=== PATIENT | male | born 1980 | race Caucasian/White ===

== ENCOUNTER 2020-02-11 19:34 | Emergency (ER) | payer OTHER, MEDICARE, SELFPAY ==
--- NOTE | 2020-02-11 19:37 | XR_ITS ---
WS: [id number] XR chest 1V portable [id number] REASON FOR EXAM: Chest pain FINDINGS: The heart and mediastinum are within normal limits. No active pulmonary parenchymal or pleural disease. Bony thorax is intact. XR/XR chest 1V portable [id number] IMPRESSION: No acute chest abnormality.
[2020-02-11 19:38] VITALS: BP 187/124; PULSE 72; RESP 18; TEMP 36.6; O2SAT 97; BMI 38.3
[2020-02-11 21:11] LABS: Basophils % 0.5 %; Eosinophils # 0.2 10^3/uL (0.0-0.8); Eosinophils % 2.1 %; Lymphocytes # 1.8 10^3/uL (0.8-4.8); Mean Corpuscular HGB Conc 34.8 g/dL (30.0-36.0); Mean Corpuscular Hemoglobin 33.1 pg (28.0-34.0); Mean Platelet Volume 9.2 fL (7.4-10.4); Monocytes # 0.5 10^3/uL (0.2-0.9); Monocytes % 6.2 %; Neutrophils # 4.87 10^3/uL (1.8-7.7); Neutrophils % 66.8 %; Nucleated Red Blood Cells % 0 %; Platelet Count 197 10^3/cmm (130-400); Red Blood Count 4.84 10^6/uL (4.1-5.3); Red Cell Distribution Width 13.2 % (12.1-15.1); White Blood Count 7.3 10^3/uL (4.0-10.0)
[2020-02-11 21:21] LABS: INR 1.14 (0.8-1.2)
[2020-02-11 21:37] LABS: Alanine Aminotransferase 51 U/L (0-41); Albumin Level 4.6 g/dL (3.5-5.2); Alkaline Phosphatase 71 IU/L (40-130); Aspartate Amino Transferase 34 U/L (0-40); Blood Urea Nitrogen 11 mg/dL (6-20); Calcium 9.4 mg/dL (8.5-10.5); Carbon Dioxide 28 mmol/L (22-29); Chloride 101 mmol/L (98-107); Globulin 2.4 g/dL (1.3-4.6); Glomerular Filtration Rate 108.2 mL/min (90-130); Glucose 101 mg/dL (65-115); Lipase 29 U/L (13-60); Magnesium 1.9 mg/dL (1.7-2.3); Osmolality Calculated 292 mOsm/kg (285-295); Sodium 141 mmol/L (136-145); Total Bilirubin 0.6 mg/dL (0.15-1.2)
[2020-02-11 21:38] LABS: Troponin(5th) Baseline 6 ng/L (0-15)
[2020-02-11 21:39] VITALS: BP 168/104; PULSE 64; RESP 19; O2SAT 97
[2020-02-11] MEDS: nitroglycerin 0.4 mg sublingual Tablet SUBLINGUAL (21:47)
[2020-02-11] MEDS: aspirin 81 mg Chew Tablet 324 MG PO (21:47)
[2020-02-11 22:17] LABS: Troponin 5 2HR Delta 0 ABS# (0-10)
[2020-02-11 22:53] VITALS: BP 161/104; PULSE 61; RESP 21; O2SAT 95
--- NOTE | 2020-02-11 23:02 | ED_ITS ---
HPI - Chest Pain General: Chief Complaint: Chest Pain Stated Complaint: CP Time Seen by Provider: 02/11/20 20:39 Source: patient Mode of arrival: ambulatory Limitations: no limitations History of Present Illness: MD complaint: chest pain Onset (ago): hour(s) (6) Timing of current episode: constant Prior episodes: No Onset: during rest Pain location: left chest Pain radiation: right arm Severity: moderate Quality: sharp Relieving factors: nothing Exacerbating factors: nothing Context: recent illness Associated symptoms: Deny abdominal pain, dyspnea, fever(s), nausea, palpitations or vomiting Review of Systems General: Reports: 10 or more systems reviewed and unremarkable except in HPI and below Const: Denies: fever(s), chills or body aches Eyes: Denies: change in vision or blurry vision ENMT: Denies: throat pain, enlarged tonsils, odynophagia, hoarseness, mouth pain or swelling of lips/tongue Card: Reports: chest pain; Denies: palpitations, irregular heart rhythm, edema or swelling of feet/ankles Resp: Denies: dyspnea, productive cough or non-productive cough GI: Denies: abdominal pain, nausea or vomiting : Denies: flank pain, dysuria, urinary frequency, urinary urgency or urinary hesitancy Musc: Denies: neck pain, back pain or extremity swelling Skin/Breast: Denies: rash, pruritus or erythema Neuro: Denies: headache(s), numbness in extremities or weakness in extremities Endo: Denies: polyuria, polydipsia or tired all the time Physical Exam Const: COMMON NORMALS: no acute distress, average body habitus, patient oriented x3, no limitations, healthy appearing, alert and well nourished HENMT: COMMON NORMALS: normocephalic, atraumatic and moist oral mucous membranes HEAD & SCALP: normocephalic and atraumatic Neck/C-Spine: COMMON NORMALS: no meningeal signs and no JVD Chest: COMMONS NORMALS: normal inspection of the chest and normal palpation of entire chest wall Resp: COMMON NORMALS: normal respiratory effort, No retractions, No use of accessory muscles, clear to auscultation bilaterally and percussion normal AUSCULTATION: clear to auscultation bilaterally PERCUSSION: percussion normal Cardio: COMMON NORMALS: no JVD, regular rate, regular rhythm, S1 normal heart sound present, S2 normal heart sound present, No gallops present (Cardio), No clicks present (Cardio), No murmurs present (Cardio), No rub (Cardio) and Peripheral pulses 2+ throughout RATE: regular rate RHYTHM: regular rhythm HEART SOUNDS: S1 normal heart sound present and S2 normal heart sound present PERIPHERAL PULSES: Peripheral pulses 2+ throughout GI: COMMON NORMALS: Normal to inspection, nondistended, normoactive bowel sounds present, Soft to palpation, non-tender, No hepatosplenomegaly present, no masses and no bruits PALPATION: Yes Soft to palpation and Yes No hepatosplenomegaly present Extremity: COMMON NORMALS: normal to inspection, full ROM, capillary refill normal, no calf tenderness and no pedal edema Neuro: COMMON NORMALS: patient oriented x3 SENSORIUM/ORIENTATION: Yes alert MENINGEAL SIGNS: Yes no meningeal signs Skin: COMMON NORMALS: no rashes or lesions noted, no wounds, turgor normal, no jaundice, no petechiae and no mottling GENERAL SKIN EXAM: no rashes or lesions noted and turgor normal Course Reevaluation(s): Reevaluation #1: Discussed his lab and imaging findings with him. Negative for acute findings. Negative high-sensitivity troponin. We will discharge him home with no new orders. Heart score is 2 for risk factors, he is low risk for a Mace in the next 6 weeks, 1.7% chance. He is discharged home with no new orders. He voiced understanding and is in agreement with the plan. Time: 23:02 Vital Signs: Vital signs: Vital Signs Temperature 97.8 F 02/11/20 19:38 Pulse Rate 66 02/11/20 23:25 Respiratory Rate 21 H 02/11/20 22:53 Blood Pressure 148/95 02/11/20 23:25 Pulse Oximetry 97 02/11/20 23:25 MDM - Chest Pain MDM Narrative: Medical decision making narrative: Patient with chest pain that is unlikely to be cardiac in nature. Baseline troponin is negative. HEART score is 2 for risk factors, he has a 1.7% risk of a MACE in the next 6 weeks. He is discharged home with no new orders. Differential Diagnosis: Cardiac arrest differential diagnosis: Likely acute respiratory failure and acute myocardial infarction Medical Records: Attestation: I reviewed the patient's medical records. Lab Data: Attestation: I reviewed the patient's lab results. Labs: Lab Results 02/11/20 02/11/20 02/11/20 Range/Units 20:49 20:49 20:49 WBC 7.3 (4.0-10.0) 10^3/ uL RBC 4.84 (4.1-5.3) 10^6/u L Hgb 16.0 (11.7-16.6) g/dL Hct 46.0 (42.0-52.0) % MCV 95.0 H (80-94) fL MCH 33.1 (28.0-34.0) pg MCHC 34.8 (30.0-36.0) g/dL RDW 13.2 (12.1-15.1) % Plt Count 197 (130-400) 10^3/c mm MPV 9.2 (7.4-10.4) fL Neut % (Auto) 66.8 % Lymph % (Auto) 24.0 % [place] % (Auto) 6.2 % Eos % (Auto) 2.1 % Baso % (Auto) 0.5 % Neut # (Auto) 4.87 (1.8-7.7) 10^3/u L Lymph # (Auto) 1.8 (0.8-4.8) 10^3/u L [place] # (Auto) 0.5 (0.2-0.9) 10^3/u L Eos # (Auto) 0.2 (0.0-0.8) 10^3/u L Baso # (Auto) 0.0 (0.0-0.1) 10^3/u L Nucleated RBC % (a uto) 0 % Nucleated RBCs # 0.0 /100WBC PT 15.00 H (12.1-14.9) SECO NDS INR 1.14 (0.8-1.2) Sodium 141 (136-145) mmol/L Potassium 4.0 (3.5-5.1) mmol/L Chloride 101 (98-107) mmol/L Carbon Dioxide 28 (22-29) mmol/L Anion Gap 16.0 (5-19) BUN 11 (6-20) mg/dL Creatinine 0.8 (0.7-1.2) mg/dL GFR Calculation 108.2 (90-130) mL/min Glucose 101 (65-115) mg/dL Calculated Osmolal ity 292 (285-295) mOsm/k g Calcium 9.4 (8.5-10.5) mg/dL Magnesium 1.9 (1.7-2.3) mg/dL Total Bilirubin 0.6 (0.15-1.2) mg/dL AST 34 (0-40) U/L ALT 51 H (0-41) U/L Alkaline Phosphata se 71 (40-130) IU/L Troponin T Baselin e (0-15) ng/L Troponin T 120 Min ewiiaapaayp (0-15) ng/L Delta Troponin T (0-10) ABS# Total Protein 7.0 (6.6-8.7) g/dL Albumin 4.6 (3.5-5.2) g/dL Globulin 2.4 (1.3-4.6) g/dL Lipase 29 (13-60) U/L 02/11/20 02/11/20 Range/Units 20:49 21:50 WBC (4.0-10.0) 10^3/ uL RBC (4.1-5.3) 10^6/u L Hgb (11.7-16.6) g/dL Hct (42.0-52.0) % MCV (80-94) fL MCH (28.0-34.0) pg MCHC (30.0-36.0) g/dL RDW (12.1-15.1) % Plt Count (130-400) 10^3/c mm MPV (7.4-10.4) fL Neut % (Auto) % Lymph % (Auto) % [place] % (Auto) % Eos % (Auto) % Baso % (Auto) % Neut # (Auto) (1.8-7.7) 10^3/u L Lymph # (Auto) (0.8-4.8) 10^3/u L [place] # (Auto) (0.2-0.9) 10^3/u L Eos # (Auto) (0.0-0.8) 10^3/u L Baso # (Auto) (0.0-0.1) 10^3/u L Nucleated RBC % (a uto) % Nucleated RBCs # /100WBC PT (12.1-14.9) SECO NDS INR (0.8-1.2) Sodium (136-145) mmol/L Potassium (3.5-5.1) mmol/L Chloride (98-107) mmol/L Carbon Dioxide (22-29) mmol/L Anion Gap (5-19) BUN (6-20) mg/dL Creatinine (0.7-1.2) mg/dL GFR Calculation (90-130) mL/min Glucose (65-115) mg/dL Calculated Osmolal ity (285-295) mOsm/k g Calcium (8.5-10.5) mg/dL Magnesium (1.7-2.3) mg/dL Total Bilirubin (0.15-1.2) mg/dL AST (0-40) U/L ALT (0-41) U/L Alkaline Phosphata se (40-130) IU/L Troponin T Baselin e 6 (0-15) ng/L Troponin T 120 Min ewiiaapaayp 6.00 (0-15) ng/L Delta Troponin T 0 (0-10) ABS# Total Protein (6.6-8.7) g/dL Albumin (3.5-5.2) g/dL Globulin (1.3-4.6) g/dL Lipase (13-60) U/L Imaging Data^: CXR: Attestation: I personally reviewed and interpreted this imaging study as follows: My impression: No acute findings Discharge Plan Discharge Patient Disposition: Home Clinical Impression: Chest pain, non-cardiac Condition: Stable Prescriptions: Continued Lantus U-100 Insulin 100 unit/mL solution See Rx Instructions .ROUTE .COMPLEX RF: 0 propranolol 10 mg tablet 10 mg PO TID PRN (Reason: Anxiety) RF: 0 lisinopril 40 mg tablet 40 mg PO BID@0600,1800 RF: 0 fluticasone propionate 50 mcg/actuation spray,suspension See Rx Instructions .ROUTE .COMPLEX RF: 0 metformin 500 mg tablet extended release 24 hr 500 mg PO BID@0600,1800 RF: 0 lamotrigine 100 mg tablet 100 mg PO BID@0600,1800 RF: 0 loratadine 10 mg tablet 10 mg PO DAILY@0600 RF: 0 diazepam 5 mg tablet 5 mg PO Q12H PRN (Reason: Anxiety) RF: 0 cholecalciferol (vitamin D3) 25 mcg (1,000 unit) tablet See Rx Instructions .ROUTE .COMPLEX RF: 0 Prialt See Rx Instructions .ROUTE .COMPLEX RF: 0 garlic Tablet 1 tab PO DAILY@0600 RF: 0 Fish Oil 1 tab PO DAILY@0600 RF: 0 Discharge Orders: Discharge ED (Routine); Ordered 02/11/20 Ordered By: Brady Kincaid Discharge Diet: Usual diet Discharge Activity: Resume usual activity Patient Instructions: Noncardiac Chest Pain (ED) Activity Restrictions/Additional Instructions: Return for any new or worsening symptoms. Follow-up with your primary care provider within 3 days. Continue home medications as prescribed. Coding Level of Care Code ED Arborist Representative for Jahaira Sher
[2020-02-11 23:25] VITALS: BP 148/95; PULSE 66; O2SAT 97
== END 2020-02-11 23:26 | disposition home or self-care (01) ==
PROVIDERS: Emergency Medicine; Emergency Provider Family Medicine
DX: R07.89 Other chest pain (principal); Z79.4 Long term (current) use of insulin
CPT/HCPCS: 12345; 71045; 80053; 83690; 83735; 84484; 85025; 85610; 99282; 99283

== ENCOUNTER 2022-10-15 12:47 | Observation (INO) | payer OTHER, SELFPAY ==
--- NOTE | 2022-10-15 12:56 | XR_ITS ---
WS: [id number] XR chest 1V portable [id number] REASON FOR EXAM: cp FINDINGS: Chest is unchanged compared to 02/11/2020. Mild to moderate tortuosity of the thoracic aorta. No significant cardiomegaly. Calcified granulomatous disease in both hemithoraces. Mild elevation of the right hemidiaphragm. No acute pulmonary parenchymal or pleural abnormality. Mild to moderate scoliosis of the thoracic spine with moderate degenerative spondylosis. IMPRESSION: Stable chest with no acute abnormality.
--- NOTE | 2022-10-15 12:56 | ECG_ITS ---
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 Measurements Intervals [place] Rate: 66 P: 17 VA: 177 QRS: 1 QRSD: 102 T: -7 QT: 403 QTc: 423 Interpretive Statements SINUS RHYTHM No previous ECG available for comparison Electronically Signed On 10-15-2022 13:39:23 CDT by Jeannie Bautista M.D. [id number]
[2022-10-15 13:04] VITALS: BP 165/99; PULSE 75; RESP 18; TEMP 36.9; O2SAT 95; BMI 38.3
[2022-10-15 13:52] LABS: Basophils # 0.1 10^3/uL (0.0-0.1); Eosinophils # 0.2 10^3/uL (0.0-0.8); Eosinophils % 2.9 %; Hematocrit 46.4 % (42.0-52.0); Lymphocytes # 1.7 10^3/uL (0.8-4.8); Mean Corpuscular HGB Conc 34.5 g/dL (30.0-36.0); Mean Corpuscular Hemoglobin 31.7 pg (28.0-34.0); Mean Corpuscular Volume 91.9 fl (80-94); Monocytes # 0.6 10^3/uL (0.2-0.9); Monocytes % 7.6 %; Neutrophils # 5.26 10^3/uL (1.8-7.7); Neutrophils % 67.1 %; Nucleated Red Blood Cells % 0 %; Platelet Count 151 10^3/cmm (130-400); Red Blood Count 5.05 10^6/uL (4.1-5.3); Red Cell Distribution Width 13.5 % (12.1-15.1); White Blood Count 7.9 10^3/uL (4.0-10.0)
[2022-10-15 14:01] LABS: Glucose Point of Care 114 mg/dL (70-110)
[2022-10-15 14:06] LABS: INR 1.21 (0.8-1.2)
[2022-10-15 14:19] LABS: Troponin(5th) Baseline 8 ng/L (0-15)
[2022-10-15 14:33] LABS: Alanine Aminotransferase 100 U/L (0-41); Albumin Level 4.7 g/dL (3.5-5.2); Alkaline Phosphatase 90 U/L (40-130); Anion Gap 17.5 (5-19); Aspartate Amino Transferase 69 U/L (0-40); Blood Urea Nitrogen 10 mg/dL (6-20); Carbon Dioxide 29 mmol/L (22-29); Chloride 97 mmol/L (98-107); Globulin 2.5 g/dL (1.3-4.6); Glomerular Filtration Rate 107.1 mL/min (90-130); Glucose 130 mg/dL (65-115); NT Pro B Type Natriuretic Pept 43 pg/mL (0-125); Osmolality Calculated 291 mOsm/kg (285-295); Potassium 3.5 mmol/L (3.5-5.1); Sodium 140 mmol/L (136-145); Total Bilirubin 1.3 mg/dL (0.15-1.2); Total Protein 7.2 g/dL (6.6-8.7)
--- NOTE | 2022-10-15 16:01 | ED_ITS ---
HPI - Chest Pain General: Chief Complaint: Chest Pain Stated Complaint: sob, dizzy, chest pain, high bp Time Seen by Provider: 10/15/22 16:01 History of Present Illness: Mr. Kellogg is a 41-year-old gentleman with complex past medical history including hypertension, diabetes, obesity, smoking presenting to the emergency department for evaluation of chest pain. Notes intermittent episodes which is substernal and left chest with radiation to the left axilla. He at times feels lightheaded and diaphoretic with nausea and dyspnea. The nausea was new today which prompted him to come to the emergency department. Moderate intensity symptoms. Intermittent though more frequent over course. No other specific changes in health, exacerbating, or alleviating factors identified. Onset (ago): hour(s) Timing of current episode: increasing Onset: during rest Exacerbating factors: exertion Associated symptoms: Reports diaphoresis, dyspnea and nausea Review of Systems General: Reports: 10 or more systems reviewed and unremarkable except in HPI and below Const: Reports: diaphoresis Resp: Reports: dyspnea GI: Reports: nausea PFSH ED PFSH: Medical History (Updated 10/16/22 @ 17:34 by Beto Daily MD) Alcohol abuse Anxiety Diabetes Hypertension Surgical History (Updated 10/15/22 @ 21:52 by Jessica Shepard MD) H/O shoulder surgery Hx of tonsillectomy Family History (Updated 10/15/22 @ 21:52 by Jessica Shepard MD) Other CAD (coronary artery disease) Social History (Updated 10/15/22 @ 21:52 by Jessica Shepard MD) Smoking and tobacco status: current every day smoker Alcohol intake: current Physical Exam Const: COMMON NORMALS: alert GENERAL APPEARANCE: cooperative and well developed HENMT: COMMON NORMALS: normocephalic and atraumatic HEAD & SCALP: normocephalic and atraumatic Eye: COMMON NORMALS: conjunctivae normal CONJUNCTIVA: Yes conjunctivae normal SCLERA: sclerae normal Neck/C-Spine: COMMON NORMALS: supple GENERAL: Yes trachea midline Resp: COMMON NORMALS: clear to auscultation bilaterally EFFORT & INSPECTION: Yes able to speak in complete sentences AUSCULTATION: clear to auscultation bilaterally Cardio: COMMON NORMALS: regular rate and regular rhythm RATE: regular rate RHYTHM: regular rhythm GI: COMMON NORMALS: Soft to palpation PALPATION: Yes Soft to palpation and No Tenderness to palpation present (GI) Extremity: GENERAL: Yes normal exam except as noted and No edema Neuro: COMMON NORMALS: moves all extremities SENSORIUM/ORIENTATION: Yes alert and No Orientation impaired Psych: COMMON NORMALS: mental status grossly normal and Normal thought process present THOUGHT PROCESS: Normal thought process present Course Vital Signs: Vital signs: Vital Signs Temperature 98.3 F 10/17/22 15:33 Pulse Rate 85 10/17/22 15:33 Respiratory Rate 16 10/17/22 15:33 Blood Pressure 152/102 10/17/22 15:33 Pulse Oximetry 94 10/17/22 15:33 Oxygen Delivery Me thod Room Air 10/17/22 08:00 MDM - Chest Pain Medical Decision Making 41-year-old gentleman with multiple cardiac risk factors presenting for chest pain. Typical nature. Worsening course. Not producible with physical exam palpation. EKG demonstrates sinus rhythm with nonspecific ST segment abnormalities, no STEMI. Labs with no leukocytosis, normal hemoglobin. Metabolic panel without acute derangement to explain symptoms. Mild transaminitis. Negative range 2-hour delta troponin. Negative chest x-ray. Liver ultrasound with likely fatty infiltration and hepatomegaly. No other acute pathology. Treated during ED course with analgesia, anxiolysis, aspirin. The results of ED evaluation were discussed with the patient including plan for admission due to requirement for level of care not available if discharged to prevent significant worsening/deterioration. Patient agreeable with plan. Discussed with hospitalist service who was agreeable to admit patient. Medical Records I reviewed the patient's medical records. Lab Data I reviewed the patient's lab results. 10/16/22 04:54 10/16/22 04:54 Radiology Impressions Gallbladder Ultrasound 10/15/22 16:49 IMPRESSION: 1. Probable fatty infiltration liver. Hepatomegaly. 2. Unremarkable gallbladder. No findings of acute cholecystitis and no duct dilatation. Laboratory Results WBC 7.9 10^3/uL (4.0-10.0) 10/15/22 13:40 RBC 5.05 10^6/uL (4.1-5.3) 10/15/22 13:40 Hgb 16.0 g/dL (11.7-16.6) 10/15/22 13:40 Hct 46.4 % (42.0-52.0) 10/15/22 13:40 MCV 91.9 fl (80-94) 10/15/22 13:40 MCH 31.7 pg (28.0-34.0) 10/15/22 13:40 MCHC 34.5 g/dL (30.0-36.0) 10/15/22 13:40 RDW 13.5 % (12.1-15.1) 10/15/22 13:40 Plt Count 151 10^3/cmm (130-400) 10/15/22 13:40 MPV 9.0 fL (7.4-10.4) 10/15/22 13:40 Neut % (Auto) 67.1 % 10/15/22 13:40 Lymph % (Auto) 21.0 % 10/15/22 13:40 Mathews % (Auto) 7.6 % 10/15/22 13:40 Eos % (Auto) 2.9 % 10/15/22 13:40 Baso % (Auto) 1.0 % 10/15/22 13:40 Neut # (Auto) 5.26 10^3/uL (1.8-7.7) 10/15/22 13:40 Lymph # (Auto) 1.7 10^3/uL (0.8-4.8) 10/15/22 13:40 Mathews # (Auto) 0.6 10^3/uL (0.2-0.9) 10/15/22 13:40 Eos # (Auto) 0.2 10^3/uL (0.0-0.8) 10/15/22 13:40 Baso # (Auto) 0.1 10^3/uL (0.0-0.1) 10/15/22 13:40 Nucleated RBC % (auto) 0 % 10/15/22 13:40 Nucleated RBCs # 0.0 /100WBC 10/15/22 13:40 PT 15.70 SECONDS (12.1-14.9) H 10/15/22 13:40 INR 1.21 (0.8-1.2) H 10/15/22 13:40 D-Dimer 0.44 ug/mIFEU (0-0.59) 10/15/22 13:40 Sodium 140 mmol/L (136-145) 10/15/22 13:40 Potassium 3.5 mmol/L (3.5-5.1) 10/15/22 13:40 Chloride 97 mmol/L (98-107) L 10/15/22 13:40 Carbon Dioxide 29 mmol/L (22-29) 10/15/22 13:40 Anion Gap 17.5 (5-19) 10/15/22 13:40 BUN 10 mg/dL (6-20) 10/15/22 13:40 Creatinine 0.8 mg/dL (0.7-1.2) 10/15/22 13:40 GFR Calculation 107.1 mL/min (90-130) 10/15/22 13:40 Glucose 130 mg/dL (65-115) H 10/15/22 13:40 POC Glucose 114 mg/dL (70-110) H 10/15/22 13:58 Estimat Average Glucose 143 10/15/22 13:40 Hemoglobin A1c 6.6 % (4.0-6.0) H 10/15/22 13:40 Calculated Osmolality 291 mOsm/kg (285-295) 10/15/22 13:40 Calcium 9.0 mg/dL (8.5-10.5) 10/15/22 13:40 Total Bilirubin 1.3 mg/dL (0.15-1.2) H 10/15/22 13:40 AST 69 U/L (0-40) H 10/15/22 13:40 ALT 100 U/L (0-41) H 10/15/22 13:40 Alkaline Phosphatase 90 U/L (40-130) 10/15/22 13:40 Troponin T Baseline 8 ng/L (0-15) 10/15/22 13:40 Troponin T 120 Minute 6.67 ng/L (0-15) 10/15/22 15:40 Delta Troponin T -1.33 ABS# (0-10) L 10/15/22 15:40 Troponin T Hi Sens 6Hr 6.75 ng/L (0-15) 10/15/22 19:47 Troponin T Hi Sens 6Hr Delta -1.25 ng/L (0-12) L 10/15/22 19:47 NT-Pro-B Natriuret Pep 43 pg/mL (0-125) 10/15/22 13:40 Total Protein 7.2 g/dL (6.6-8.7) 10/15/22 13:40 Albumin 4.7 g/dL (3.5-5.2) 10/15/22 13:40 Globulin 2.5 g/dL (1.3-4.6) 10/15/22 13:40 Lipase 34 U/L (13-60) 10/15/22 13:40 Vitamin B12 610 pg/mL (232-1245) 10/15/22 19:47 TSH 1.32 uIU/mL (0.27-4.20) 10/15/22 19:47 Discharge Plan Discharge Patient Disposition: Placed in Observation Admit Provider: Agatha Membreno Clinical Impression: Chest pain Discharge Diet: Cardiac and Diabetic Discharge Activity: Resume usual activity and Increase activity as tolerated Coding Level of Care Code ED Specimen Transporter for Jahaira Sher
--- NOTE | 2022-10-15 16:12 | ECG_ITS ---
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 Measurements Intervals [place] Rate: 61 P: 15 KS: 190 QRS: -5 QRSD: 91 T: -15 QT: 429 QTc: 436 Interpretive Statements SINUS RHYTHM Compared to ECG 10/15/2022 13:03:07 No significant changes Electronically Signed On 10-15-2022 18:58:15 CDT by Jeannie Bautista M.D. [id number]
--- NOTE | 2022-10-15 16:13 | ECG_ITS ---
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 Measurements Intervals [place] Rate: 61 P: 17 HI: 182 QRS: -3 QRSD: 97 T: -8 QT: 410 QTc: 416 Interpretive Statements SINUS RHYTHM Compared to ECG 10/15/2022 13:03:07 No significant changes Electronically Signed On 10-15-2022 18:58:09 CDT by Jeannie Bautista M.D. [id number]
--- NOTE | 2022-10-15 16:24 | PC.PHAR ---
[facility]ED [facility] 10/15/22 4:25PM
[2022-10-15] MEDS: morphine 4 mg/mL SDV 1 mL IVP (16:27)
[2022-10-15] MEDS: aspirin 81 mg Chew Tablet 324 MG PO (16:27)
--- NOTE | 2022-10-15 16:49 | USR_ITS ---
PROCEDURE INFORMATION: Exam: US Abdomen, Limited; Right Upper Quadrant Exam date and time: 10/15/2022 5:41 PM Age: 41 years old Clinical indication: Pain; Other: Chest; Additional info: Chest pain, mild transaminitis and elevated t. Bili TECHNIQUE: Imaging protocol: Real time ultrasound of the abdomen with image documentation. Limited exam focused on the right upper quadrant. COMPARISON: No relevant prior studies available. FINDINGS: Liver: The liver is echogenic with attenuation of the ultrasound beam compatible with probable fatty infiltration. The liver measures 23.2 cm in length. Gallbladder: Normal. No gallstones. There is no gallbladder wall thickening. Gallbladder wall measures 2.4 mm. Biliary ducts: Normal. No stones. No dilation. Common bile duct measures 4.4 mm. Pancreas: Visualized pancreas is unremarkable. Right kidney: Normal. No mass. No hydronephrosis. Right kidney measures 13.7 cm in length. US/US gall bladder [id number] IMPRESSION: 1. Probable fatty infiltration liver. Hepatomegaly. 2. Unremarkable gallbladder. No findings of acute cholecystitis and no duct dilatation.
[2022-10-15 17:06] LABS: Lipase 34 U/L (13-60)
[2022-10-15 17:07] LABS: Troponin 5 2HR 6.67 ng/L (0-15); Troponin 5 2HR Delta -1.33 ABS# (0-10)
[2022-10-15] MEDS: LORazepam 1 mg Tablet PO (18:29)
[2022-10-15 18:39] VITALS: BP 171/99; PULSE 70; RESP 16; O2SAT 98
[2022-10-15 20:53] LABS: Troponin 5 6HR 6.75 ng/L (0-15); Troponin 5 6HR Delta -1.25 ng/L (0-12)
--- NOTE | 2022-10-15 20:59 | P.HP_ITS ---
Providers/Chief Complaint Admitting Physician: Agatha Membreno MD Chief Complaint: sob, dizzy, chest pain, high bp History of Present Illness Balaji Kellogg is a 41 year old male who lives in [facility] area was visiting his mother in the air when he start experiencing chest pain around 8 AM he was walking towards the kitchen from bedroom when he experienced left-sided chest pain which she is describing as pressure-like sensation, patient is stating that this pain has been intermittent all day without any relieving or aggravating factor, however this pain is reproducible he noticed 2 episode of emesis which made him very anxious and gave him a panic attack that prompted his visit to the ER at around 1 PM, patient stating that he became very anxious and anxiolytics in the ER really helped to calm his symptoms. Patient stating that he had a stress test and echo within 5 years which was unremarkable. Patient is stating that he has an known opioid pump for his left shoulder persistent pain, he drinks half a pint of whiskey and vodka on daily basis and smokes on daily basis as well. Never experienced any withdrawal symptoms. Patient was hypertensive his symptoms improved with use of Ativan 1 mg at the time of evaluation blood pressure is 157/96 mmHg EKG showing sinus rhythm without ischemic or infarct changes, troponin trending down D-dimer 0.4 Patient is chest pain-free at the time of evaluation He has reproducible left-sided chest pain Review of Systems Const: Denies: fever(s) Eyes: Denies: change in vision ENMT: Denies: throat pain Card: Reports: chest pain Resp: Denies: dyspnea GI: Reports: nausea : Denies: urinary frequency Musc: Denies: neck pain Skin/Breast: Denies: rash Neuro: Denies: headache(s) Psych: Reports: anxiety and sleeping less Medications/Allergies Home Medications Medication Instructions Recorded Confirmed Last Taken Type Fish Oil 1 tab PO DAILY@0600 02/11/20 02/11/20 Unknown History Prialt See Rx Instructions .Route .COMPLEX 02/11/20 02/11/20 02/11/20 History cholecalciferol (vitamin D3) 25 See Rx Instructions .Route .COMPLEX 02/11/20 02/11/20 02/11/20 History mcg (1,000 unit) tablet diazepam 5 mg tablet 5 mg PO Q12H PRN Anxiety 02/11/20 02/11/20 02/11/20 History fluticasone propionate 50 See Rx Instructions .Route .COMPLEX 02/11/20 02/11/20 02/10/20 History mcg/actuation nasal spray,suspension garlic 1 tab PO DAILY@0600 02/11/20 02/11/20 Unknown History insulin glargine 100 unit/mL See Rx Instructions .Route .COMPLEX 02/11/20 02/11/20 02/11/20 History subcutaneous solution (Lantus U-100 Insulin) lamotrigine 100 mg tablet 100 mg PO BID@0600,1800 02/11/20 02/11/20 02/11/20 History lisinopril 40 mg tablet 40 mg PO BID@0600,1800 02/11/20 02/11/20 02/11/20 History loratadine 10 mg tablet 10 mg PO DAILY@0600 02/11/20 02/11/20 02/10/20 History metformin 500 mg tablet,extended 500 mg PO BID@0600,1800 02/11/20 02/11/20 02/11/20 History release 24 hr propranolol 10 mg tablet 10 mg PO TID PRN Anxiety 02/11/20 02/11/20 02/11/20 History Allergies Allergy/AdvReac Type Severity Reaction Status Date / Time divalproex sodium Allergy Unknown [facility]20 [facility] Penicillins Allergy Unknown Verified 02/11/20 21:23 PFSH Acute PFSH: Medical History (Updated 10/15/22 @ 21:52 by Jessica Shepard MD) Diabetes Hypertension Surgical History (Updated 10/15/22 @ 21:52 by Jessica Shepard MD) H/O shoulder surgery Hx of tonsillectomy Family History (Updated 10/15/22 @ 21:52 by Jessica Shepard MD) Other CAD (coronary artery disease) Social History (Updated 10/15/22 @ 21:52 by Jessica Shepard MD) Smoking and tobacco status: current every day smoker Alcohol intake: current Vitals/I&O/Wt Last Vital Signs Temp 98.4 F 10/15/22 13:04 Pulse 70 10/15/22 18:39 Resp 16 10/15/22 18:39 BP 171/99 10/15/22 18:39 Pulse Ox 98 10/15/22 18:39 O2 Del Method Room Air 10/15/22 18:39 Weight last 48 hrs Weight 142.882 kg Physical Exam Narrative: Patient is awake and alert GCS 15 Reproduce left-sided chest pain Multiple skin tattoos Well-built Morbidly obese Appears stated age Currently on room air Nonfocal neuro exam Pleasant and cooperative Data 10/15/22 13:40 10/15/22 13:40 A&P Assessment and plan (1) Chest pain: Plan Atypical chest pain Reproducible left-sided pain Troponin negative EKG without ischemic or infarct changes He has multiple risk factors for coronary disease such as hypertension diabetes, dyslipidemia, high BMI, he drinks on daily basis Alcohol-related gastritis could also cause similar complaints Add Protonix IV at this point Continue thiamine folic acid Request echo to see wall motion abnormality I did tell the patient if echo is unremarkable he may be able to go home tomorrow provided the fact he had stress test and echo done within 5 years at [facility] I will continue cardiac consistent carb diet Give him Lantus Patient is asking for medications for insomnia Full code DVT prophylaxis on board D-dimer requested Hypertensive urgency: Adjust antihypertensive regimen, blood pressure not well controlled on current regimen PTSD: Patient takes propranolol and lamotrigine Attestations Medical Necessity Statement*: Anticipating discharge within 48 hours Diagnoses Chest pain R07.9
[2022-10-15 21:23] VITALS: BP 157/96; PULSE 73; RESP 20; TEMP 37; O2SAT 96
[2022-10-15 21:31] LABS: Glucose Point of Care 176 mg/dL (70-110)
[2022-10-15 21:33] LABS: D Dimer 0.44 ug/mIFEU (0-0.59)
[2022-10-15 21:51] LABS: Thyroid Stimulating Hormone 1.32 uIU/mL (0.27-4.20); Vitamin B12 610 pg/mL (232-1245)
[2022-10-15 22:00] VITALS: PULSE 54
[2022-10-15] MEDS: lamoTRIgine 100 mg Tablet PO (22:31)
[2022-10-15] MEDS: enoxaparin 40 mg/0.4 mL Syringe SUBCUT (22:31)
[2022-10-15 22:33] VITALS: RESP 20; O2SAT 96
[2022-10-15] MEDS: morphine IR 15 mg Tablet PO (22:33)
[2022-10-15 23:46] VITALS: BP 163/103; PULSE 66; RESP 17; TEMP 37; O2SAT 95
[2022-10-16] VITALS (14 sets, daily range): BP systolic 124–164; BP diastolic 75–108; PULSE 62–84; RESP 15–18; TEMP 36.6–36.9; O2SAT 93–98
[2022-10-16] MEDS: LORazepam 2 mg/mL INJ 1 mL 0.5 MG IVP ×2 (00:05→06:15)
[2022-10-16 01:13] LABS: Estmated Average Glucose 143; Hemoglobin A1C 6.6 % (4.0-6.0)
[2022-10-16 01:28] LABS: Amphetamines Screen Urine Negative (Negative); Barbiturates Screen Urine Negative (Negative); Benzodiazepines Screen Urine Positive (Negative); Cocaine Screen Urine Negative (Negative); Opiate Screen Urine Positive (Negative); PCP Screen Urine Negative (Negative); THC Screen Urine Positive (Negative)
--- NOTE | 2022-10-16 02:31 | PC.NURSE ---
PATIENT C/O CHEST PAIN 7/10 ON PAIN SCALE. PATIENT PO MORPHINE NOT DUE UNTIL 0430. CALLED [facility] HOSPITALIST DR LEE. RECEIVED TELEPHONE READ BACK ORDER TO ADMIN PO MORPHINE NOW. WILL CONTINUE TO MONITOR.
[2022-10-16] MEDS: morphine IR 15 mg Tablet PO ×3 (02:49→21:05)
[2022-10-16 05:57] LABS: Basophils % 0.4 %; Eosinophils # 0.2 10^3/uL (0.0-0.8); Eosinophils % 2.3 %; Hematocrit 42.4 % (42.0-52.0); Lymphocytes % 28.8 %; Mean Corpuscular HGB Conc 35.4 g/dL (30.0-36.0); Mean Corpuscular Hemoglobin 32.5 pg (28.0-34.0); Mean Corpuscular Volume 91.8 fl (80-94); Mean Platelet Volume 9.3 fL (7.4-10.4); Monocytes # 0.6 10^3/uL (0.2-0.9); Monocytes % 7.8 %; Neutrophils # 4.27 10^3/uL (1.8-7.7); Neutrophils % 60.3 %; Nucleated Red Blood Cells % 0 %; Platelet Count 145 10^3/cmm (130-400); Red Blood Count 4.62 10^6/uL (4.1-5.3); Red Cell Distribution Width 13.5 % (12.1-15.1); White Blood Count 7.1 10^3/uL (4.0-10.0)
[2022-10-16] MEDS: lamoTRIgine 100 mg Tablet PO ×2 (06:05→17:35)
[2022-10-16 06:20] LABS: Anion Gap 13.3 (5-19); Blood Urea Nitrogen 12 mg/dL (6-20); Calcium 9.1 mg/dL (8.5-10.5); Carbon Dioxide 28 mmol/L (22-29); Chloride 100 mmol/L (98-107); Glomerular Filtration Rate 124.9 mL/min (90-130); Glucose 108 mg/dL (65-115); Magnesium 1.8 mg/dL (1.7-2.3); Osmolality Calculated 286 mOsm/kg (285-295); Potassium 3.3 mmol/L (3.5-5.1); Sodium 138 mmol/L (136-145)
[2022-10-16 06:55] LABS: Glucose Point of Care 112 mg/dL (70-110)
[2022-10-16] MEDS: chlorthalidone 25 mg Tablet 12.5 MG PO (08:36)
[2022-10-16] MEDS: folic acid 1 mg Tablet PO (08:36)
[2022-10-16] MEDS: sennosides-docusate Tablet 1 TAB PO (08:36)
[2022-10-16] MEDS: lisinopril 20 mg Tablet 40 MG PO (08:36)
[2022-10-16] MEDS: thiamine 100 mg Tablet PO (08:36)
[2022-10-16] MEDS: aspirin 81 mg EC Tablet PO (08:36)
[2022-10-16] MEDS: amlodipine 10 mg Tablet PO (08:36)
[2022-10-16] MEDS: propranolol 20 mg Tablet 10 MG PO (09:36)
--- NOTE | 2022-10-16 09:49 | ECG_ITS ---
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 Measurements Intervals [place] Rate: 67 P: 20 PA: 211 QRS: -16 QRSD: 110 T: -24 QT: 409 QTc: 435 Interpretive Statements SINUS RHYTHM WITH FIRST DEGREE AV BLOCK MODERATE VOLTAGE CRITERIA FOR LVH, CONSIDER NORMAL VARIANT [MEETS CRITERIA IN ONE OF: R(aVL), S(V1), R(V5), R(V5/V6)+S(V1)] INFERIOR MYOCARDIAL INFARCTION , OF INDETERMINATE AGE [40+ ms Q WAVE AND/OR ST/T ABNORMALITY IN II/aVF] INTERPRETATION BASED ON A DEFAULT AGE OF 40 YEARS Compared to ECG 10/15/2022 16:13:27 First degree AV block now present Myocardial infarct finding now present Electronically Signed On 10-17-2022 11:34:10 CDT by Antonio Wallis M.D. [id number]
[2022-10-16 10:45] LABS: Alcohol Level < 10 mg/dL (0-10)
[2022-10-16] MEDS: ALPRAZolam 0.5 mg Tablet PO (10:46)
[2022-10-16 11:33] LABS: Glucose Point of Care 145 mg/dL (70-110)
[2022-10-16] MEDS: insulin lispro 100 unit/1 mL SUBCUT ×2 (11:50→21:03)
[2022-10-16] MEDS: LORazepam 2 mg/mL INJ 1 mL IVP (12:05)
[2022-10-16 17:23] LABS: Glucose Point of Care 135 mg/dL (70-110)
--- NOTE | 2022-10-16 17:33 | PM.PN ---
Subjective Subjective: Currently labs appreciated. Monitor overnight. Today morning patient had 1 episode of anxiety spell when he felt as if his heart was racing and he was having mild chest pain though got relieved with oral Xanax and IV Ativan for a CIWA of more than 13. On examination he is a lot more relaxed, denies any chest pain. Mother at bedside. Asking for resources regarding alcohol withdrawal programs. Patient would like to get admitted somewhere closer to his home and would want to do it by himself. Denies any nausea, pain, headache. Blood work appreciated. Vitals/I&O/Wt Last Vital Signs Temp 98.0 F 10/16/22 16:00 Pulse 68 10/16/22 16:00 Resp 17 10/16/22 16:00 BP 142/94 10/16/22 16:00 Pulse Ox 94 10/16/22 16:00 O2 Del Method Room Air 10/16/22 08:00 10/16/22 10/16/22 10/16/22 06:59 14:59 22:59 Intake Total 860 / 860 Output Total 300 / 300 Balance -300 / -300 860 / 860 Weight last 48 hrs Weight 142.882 kg Physical Exam Narrative: Patient is awake and alert GCS 15 Reproduce left-sided chest pain Multiple skin tattoos Well-built Morbidly obese Appears stated age Currently on room air Nonfocal neuro exam Pleasant and cooperative Data 10/16/22 04:54 10/16/22 04:54 A&P Assessment and plan (1) Anxiety: (2) Alcohol abuse: (3) Hypertension: (4) Diabetes: (5) Chest pain: Plan Atypical chest pain: Most likely in setting of anxiety and alcohol abuse. Cannot rule out alcohol induced gastritis. Troponin negative He has multiple risk factors for coronary disease such as hypertension diabetes, dyslipidemia, high BMI, he drinks on daily basis Has had recent stress test and echocardiogram in last 5 years at [facility] which as per him were reported normal. Continue with aspirin, statin. Echocardiogram awaited. If positive will plan for Lexiscan stress test otherwise we will plan to discharge home. A1c 6.6, TSH normal, B12 levels normal. Add lipid panel to the labs. Goal blood pressure less than 140/90 mmHg. Continue with amlodipine 10 mg daily started overnight, home dose of lisinopril 40 mg daily. Continue propanol 3 times daily as needed for anxiety. Alcohol abuse: Watch for alcohol withdrawal. CIWA protocol. Thiamine and folic acid. Type 2 diabetes mellitus: Appreciate A1c. Insulin sliding scale ordered Carb consistent cardiac diet. Lovenox for DVT prophylaxis Protonix for PUD prophylaxis. Case management requested to provide patient's documents regarding alcohol withdrawal program closer to his home. Patient would want to get admitted to a rehab by himself nearer to his house. Attestations Medical Necessity Statement*: Requires further hospitalization for further evaluation and management of atypical chest pain most likely in setting of anxiety and alcohol withdrawal Diagnoses Anxiety F41.9 Alcohol abuse F10.10 Hypertension I10 Diabetes E11.9 Chest pain R07.9
[2022-10-16 17:59] LABS: Chol HDL Ratio 4.37 mg/dL (1.0-5.00); Cholesterol 131 mg/dL (0-200); HDL Cholesterol 30 mg/dL (60-100); LDL Cholesterol Calculated 62 mg/dL (50-129); Triglycerides 197 mg/dL (0-150); VLDL Cholestrol Calculation 39 mg/dL (0-30)
[2022-10-16 20:33] LABS: Glucose Point of Care 145 mg/dL (70-110)
--- NOTE | 2022-10-16 21:00 | USCV_ITS ---
Balaji Kellogg Age: 41 Gender: M : 1980 Exam Date: 10/16/2022 16:33 Ordering Phys: Jessica Shepard MD Technologist: AYANNA Exam Location: [facility] [place] Indication: ua BP: / HR: 67 Rhythm: Sinus Technical Quality: Poor MEASUREMENTS (Male / Female) Normal Values 2D ECHO LV Diastolic Diameter PLAX 6.9 cm 4.2 - 5.9 / 3.9 - 5.3 cm LV Systolic Diameter PLAX 5.4 cm IVS Diastolic Thickness 1.0 cm 0.6 - 1.0 / 0.6 - 0.9 cm IVS Systolic Thickness 1.8 cm LVPW Diastolic Thickness 1.2 cm 0.6 - 1.0 / 0.6 - 0.9 cm LVPW Systolic Thickness 1.2 cm LVOT Diameter 2.8 cm LV Ejection Fraction 2D Teich 43.2 % LV Ejection Fraction MOD 2C 30.1 % LV Ejection Fraction 2C AL 26.8 % LA Diameter 3.7 cm M-MODE Aortic Annulus Diameter 3.6 cm LA Ao Ratio MM 1.1 MV E Point Septal Separation 1.2 cm DOPPLER MV Area PHT 4.3 cm squared Mitral E to A Ratio 1.2 MV E' Velocity 51.5 cm/s Mitral E to MV E' Ratio 10.2 Mitral E to LV E' Lateral Ratio 8.5 Mitral E to LV E' Septal Ratio 12.9 TR Peak Velocity 151.0 cm/s TR Peak Gradient 9.1 mmHg TV Peak E Velocity 81.0 cm/s PV Peak Velocity 104.0 cm/s FINDINGS Left Ventricle Ventricle is poorly seen. There appears to be normal size and function with no regional wall motion abnormalities. Normal diastolic function. Ejection fraction is about 55 to 60%. Right Ventricle Right ventricle not well visualized. Normal right ventricular size and systolic function. Right Atrium The right atrium is normal in size. Left Atrium The left atrium is normal in size. Mitral Valve Structurally normal mitral valve without significant stenosis or prolapse. There is no mitral regurgitation. Aortic Valve Structurally normal aortic valve without significant sclerosis or stenosis. There is no aortic regurgitation. Tricuspid Valve Structurally normal tricuspid valve without significant stenosis or regurgitation. Pulmonary artery systolic pressure is normal. Pulmonic Valve Structurally normal pulmonic valve without significant stenosis. There is no pulmonic regurgitation. Pericardium Normal pericardium without effusion. Aorta Normal ascending aorta dimension. IVC Inferior vena cava not visualized. CONCLUSIONS Ventricle is poorly seen. There appears to be normal size and function with no regional wall motion abnormalities. Normal diastolic function. Ejection fraction is about 55 to 60%. This is a poor quality study with no obvious abnormalities. The echo is likely within normal limits.there are no prior echocardiogram studies to compare. Dr. Antonio Wallis MD (Electronically Signed) Final Date: 17 October 2022 09:28 S
[2022-10-16] MEDS: insulin glargine 100 units/1 mL 22 UNIT SUBCUT (21:02)
[2022-10-16] MEDS: enoxaparin 40 mg/0.4 mL Syringe SUBCUT (21:02)
[2022-10-16] MEDS: zolpidem 5 mg Tablet PO (23:15)
[2022-10-17] VITALS (8 sets, daily range): BP systolic 134–152; BP diastolic 88–102; PULSE 65–85; RESP 14–18; TEMP 36.3–36.8; O2SAT 93–97
[2022-10-17] MEDS: ondansetron 2 mg/ML SDV 2 mL 4 MG IVP (04:11)
[2022-10-17] MEDS: LORazepam 2 mg/mL INJ 1 mL IVP ×2 (04:11→09:18)
[2022-10-17] MEDS: lamoTRIgine 100 mg Tablet PO (05:51)
[2022-10-17 06:41] LABS: Glucose Point of Care 116 mg/dL (70-110)
[2022-10-17] MEDS: multivitamin therapeutic Tablet 1 TAB PO (09:01)
[2022-10-17] MEDS: lisinopril 20 mg Tablet 40 MG PO (09:01)
[2022-10-17] MEDS: folic acid 1 mg Tablet PO (09:02)
[2022-10-17] MEDS: morphine IR 15 mg Tablet PO ×2 (09:02→15:27)
[2022-10-17] MEDS: amlodipine 10 mg Tablet PO (09:02)
[2022-10-17] MEDS: sennosides-docusate Tablet 1 TAB PO (09:03)
[2022-10-17] MEDS: aspirin 81 mg EC Tablet PO (09:03)
[2022-10-17] MEDS: thiamine 100 mg Tablet PO (09:03)
[2022-10-17 11:00] LABS: Glucose Point of Care 116 mg/dL (70-110)
--- NOTE | 2022-10-17 12:33 | P.DS_ITS ---
Discharge Providers Date of Admission: 10/15/22 21:10 Date of Discharge: October 17, 2022 Attending Provider at Admission: Agatha Membreno MD Attending Provider at Discharge: Beto Daily MD Diagnoses at Discharge Discharge Diagnosis (1) Anxiety: Status: Acute (2) Alcohol abuse: Status: Acute (3) Hypertension: Status: Acute (4) Diabetes: Status: Acute (5) Chest pain: Status: Acute Reason for Visit Reason for Visit: sob, dizzy, chest pain, high bp Brief History: History as per HPI: Balaji Kellogg is a 41 year old male who lives in [facility] area was visiting his mother in the air when he start experiencing chest pain around 8 AM he was walking towards the kitchen from bedroom when he experienced left-sided chest pain which she is describing as pressure-like sensation, patient is stating that this pain has been intermittent all day without any relieving or aggravating factor, however this pain is reproducible he noticed 2 episode of emesis which made him very anxious and gave him a panic attack that prompted his visit to the ER at around 1 PM, patient stating that he became very anxious and anxiolytics in the ER really helped to calm his symptoms.? Patient stating that he had a stress test and echo within 5 years which was unremarkable.? Patient is stating that he has an known opioid pump for his left shoulder persistent pain, he drinks half a pint of whiskey and vodka on daily basis and smokes on daily basis as well.? Never experienced any withdrawal symptoms.? Patient was hypertensive his symptoms improved with use of Ativan 1 mg at the time of evaluation blood pressure is 157/96 mmHg EKG showing sinus rhythm without ischemic or infarct changes, troponin trending down D-dimer 0.4 Patient is chest pain-free at the time of evaluation He has reproducible left-sided chest pain Hospital Course Hospital Course Patient was admitted to the hospital for further evaluation and management of atypical chest pain in setting of high risk factors for CAD, anxiety and history of alcohol abuse. During hospitalization patient did have few episodes of anxiety and panic in setting of alcohol withdrawal which were treated with benzodiazepines. Echocardiogram was done which ruled out regional wall motion abnormality and showed normal EF. Given normal stress test within last 5 years without regional wall motion abnormality on echocardiogram and negative trend of delta troponin decision was made to discharge patient back home. During hos pitalization he was found to have elevated blood pressures/antihypertensives have been adjusted. Patient was counseled in detail for alcohol consumption cessation. She verbalized understanding and wants to go ahead and voluntarily to alcohol withdrawal place near his home. Resources have been provided to the patient was seen. Physical Exam Narrative: Patient is awake and alert GCS 15 Reproduce left-sided chest pain Multiple skin tattoos Well-built Morbidly obese Appears stated age Currently on room air Nonfocal neuro exam Pleasant and cooperative Discharge Data Studies Completed and Pending Completed Studies During Hospitalization Category Date Time Status XR chest 1V portable [id number] Stat Exams 10/15/22 12:56 Completed CV. echo complete* [id number] Routine Ultrasound 10/16/22 21:00 Completed US gall bladder [id number] Stat Ultrasound 10/15/22 16:49 Completed Radiology Impressions Gallbladder Ultrasound 10/15/22 16:49 IMPRESSION: 1. Probable fatty infiltration liver. Hepatomegaly. 2. Unremarkable gallbladder. No findings of acute cholecystitis and no duct dilatation. Echocardiogram: ?CONCLUSIONS ?Ventricle is poorly seen.? There appears to be normal size and ?function with no regional wall motion abnormalities.? Normal ?diastolic function.? Ejection fraction is about 55 to 60%. ?This is a poor quality study with no obvious abnormalities.? The ?echo is likely within normal limits.there are no prior ?echocardiogram studies to compare. Laboratory Results WBC 7.1 10^3/uL (4.0-10.0) 10/16/22 04:54 RBC 4.62 10^6/uL (4.1-5.3) 10/16/22 04:54 Hgb 15.0 g/dL (11.7-16.6) 10/16/22 04:54 Hct 42.4 % (42.0-52.0) 10/16/22 04:54 MCV 91.8 fl (80-94) 10/16/22 04:54 MCH 32.5 pg (28.0-34.0) 10/16/22 04:54 MCHC 35.4 g/dL (30.0-36.0) 10/16/22 04:54 RDW 13.5 % (12.1-15.1) 10/16/22 04:54 Plt Count 145 10^3/cmm (130-400) 10/16/22 04:54 MPV 9.3 fL (7.4-10.4) 10/16/22 04:54 Neut % (Auto) 60.3 % 10/16/22 04:54 Lymph % (Auto) 28.8 % 10/16/22 04:54 [place] % (Auto) 7.8 % 10/16/22 04:54 Eos % (Auto) 2.3 % 10/16/22 04:54 Baso % (Auto) 0.4 % 10/16/22 04:54 Neut # (Auto) 4.27 10^3/uL (1.8-7.7) 10/16/22 04:54 Lymph # (Auto) 2.0 10^3/uL (0.8-4.8) 10/16/22 04:54 [place] # (Auto) 0.6 10^3/uL (0.2-0.9) 10/16/22 04:54 Eos # (Auto) 0.2 10^3/uL (0.0-0.8) 10/16/22 04:54 Baso # (Auto) 0.0 10^3/uL (0.0-0.1) 10/16/22 04:54 Nucleated RBC % (auto) 0 % 10/16/22 04:54 Nucleated RBCs # 0.0 /100WBC 10/16/22 04:54 PT 15.70 SECONDS (12.1-14.9) H 10/15/22 13:40 INR 1.21 (0.8-1.2) H 10/15/22 13:40 D-Dimer 0.44 ug/mIFEU (0-0.59) 10/15/22 13:40 Sodium 138 mmol/L (136-145) 10/16/22 04:54 Potassium 3.3 mmol/L (3.5-5.1) L 10/16/22 04:54 Chloride 100 mmol/L (98-107) 10/16/22 04:54 Carbon Dioxide 28 mmol/L (22-29) 10/16/22 04:54 Anion Gap 13.3 (5-19) 10/16/22 04:54 BUN 12 mg/dL (6-20) 10/16/22 04:54 Creatinine 0.7 mg/dL (0.7-1.2) 10/16/22 04:54 GFR Calculation 124.9 mL/min (90-130) 10/16/22 04:54 Glucose 108 mg/dL (65-115) 10/16/22 04:54 POC Glucose 116 mg/dL (70-110) H 10/17/22 10:53 Estimat Average Glucose 143 10/15/22 13:40 Hemoglobin A1c 6.6 % (4.0-6.0) H 10/15/22 13:40 Calculated Osmolality 286 mOsm/kg (285-295) 10/16/22 04:54 Calcium 9.1 mg/dL (8.5-10.5) 10/16/22 04:54 Magnesium 1.8 mg/dL (1.7-2.3) 10/16/22 04:54 Total Bilirubin 1.3 mg/dL (0.15-1.2) H 10/15/22 13:40 AST 69 U/L (0-40) H 10/15/22 13:40 ALT 100 U/L (0-41) H 10/15/22 13:40 Alkaline Phosphatase 90 U/L (40-130) 10/15/22 13:40 Troponin T Baseline 8 ng/L (0-15) 10/15/22 13:40 Troponin T 120 Minute 6.67 ng/L (0-15) 10/15/22 15:40 Delta Troponin T -1.33 ABS# (0-10) L 10/15/22 15:40 Troponin T Hi Sens 6Hr 6.75 ng/L (0-15) 10/15/22 19:47 Troponin T Hi Sens 6Hr Delta -1.25 ng/L (0-12) L 10/15/22 19:47 C-Reactive Protein 11.0 mg/L (0.0-4.9) H 10/16/22 04:54 NT-Pro-B Natriuret Pep 43 pg/mL (0-125) 10/15/22 13:40 Total Protein 7.2 g/dL (6.6-8.7) 10/15/22 13:40 Albumin 4.7 g/dL (3.5-5.2) 10/15/22 13:40 Globulin 2.5 g/dL (1.3-4.6) 10/15/22 13:40 Triglycerides 197 mg/dL (0-150) H 10/16/22 04:54 Cholesterol 131 mg/dL (0-200) 10/16/22 04:54 LDL Cholesterol, Calc 62 mg/dL (50-129) 10/16/22 04:54 Total VLDL Cholesterol 39 mg/dL (0-30) H 10/16/22 04:54 HDL Cholesterol 30 mg/dL (60-100) L 10/16/22 04:54 Cholesterol/HDL Ratio 4.37 mg/dL (1.0-5.00) 10/16/22 04:54 Lipase 34 U/L (13-60) 10/15/22 13:40 Vitamin B12 610 pg/mL (232-1245) 10/15/22 19:47 TSH 1.32 uIU/mL (0.27-4.20) 10/15/22 19:47 Urine Opiates Screen Positive ng/mL (Negative) H 10/15/22 23:35 Ur Barbiturates Screen Negative ng/mL (Negative) 10/15/22 23:35 Ur Phencyclidine Scrn Negative ng/mL (Negative) 10/15/22 23:35 Ur Amphetamines Screen Negative ng/mL (Negative) 10/15/22 23:35 U Benzodiazepines Scrn Positive ng/mL (Negative) H 10/15/22 23:35 Urine Cocaine Screen Negative ng/mL (Negative) 10/15/22 23:35 U Marijuana (THC) Screen Positive ng/mL (Negative) H 10/15/22 23:35 Ethyl Alcohol < 10 mg/dL (0-10) 10/16/22 04:54 Vitals Last Vital Signs Temp 98.3 F 10/17/22 08:00 Pulse 74 10/17/22 08:00 Resp 16 10/17/22 09:02 BP 148/94 10/17/22 08:00 Pulse Ox 93 10/17/22 08:00 O2 Del Method Room Air 10/17/22 08:00 Discharge Plan Discharge Patient Disposition: Home Condition: Stable Prescriptions: New aspirin 81 mg Tablet,Delayed Release (Dr/Ec) 81 mg PO DAILY Qty: 30 0RF Continued insulin glargine [Lantus U-100 Insulin] 100 unit/mL solution 22 unit SUBCUT 1XD Rx Instructions: subcutaneously use as directed propranolol 10 mg tablet 10 mg PO TID PRN (Reason: Anxiety) lisinopril 40 mg tablet 40 mg PO 1XD lamotrigine 100 mg tablet 100 mg PO BID@0600,1800 Prialt See Rx Instructions .ROUTE .COMPLEX Rx Instructions: use as directed metformin 750 mg 1 tab PO BID atorvastatin 10 mg Tablet 5 mg PO DAILY Trintellix 20 mg PO 1XD alprazolam 1 mg PO PRN MDD TID Changed amlodipine benzoate 10 mg PO 1XD Qty: 30 0RF Discharge Orders: Discharge Order (Routine); Ordered 10/17/22 Ordered By: Beto Daily Discharge Diet: Cardiac and Diabetic Discharge Activity: Resume usual activity and Increase activity as tolerated Patient Instructions: Alcohol Abuse, Aspirin (By mouth), Mood Disorders (GEN), Opioid Safety Activity Restrictions/Additional Instructions: Please try to avoid using alcohol going forward. If needed please check yourself in 2 alcohol rehab program. Resources have been provided to you. Please start using baby aspirin 81 mg daily. You should follow-up with the behavioral health clinic near your home for her regular treatment. Discharge Attestations Time Spent in Discharge Care*: greater than 30 min Specific Discharge Activities: educating patient, educating and/or supporting family/caregiver, discussing with pcp/other providers, discussing with sample case porter/social workers/dc planners, documenting/other paperwork and evaluating patient/reviewing data Status at Discharge: Cognitive status at discharge: cognitively intact , Behavioral status at discharge: cooperative , Functional status at discharge: independent ambulation , Overall status at discharge: patient is back to baseline Quality Metrics Clinical Quality Measures [ No reported AMI, CVA or VTE this stay] Coding Level of Care Code 28730 Diagnoses Anxiety F41.9 Alcohol abuse F10.10 Hypertension I10 Diabetes E11.9 Chest pain R07.9
[2022-10-17] MEDS: LORazepam 2 mg/mL INJ 1 mL 0.5 MG IVP (15:19)
== END 2022-10-17 15:34 | disposition home or self-care (01) ==
LOC: ER 18:27 → MEDSURG 20:32
PROVIDERS: Emergency Medicine; Internal Medicine; Admitting Provider Student in an Organized Health Care Education/Training Program; Emergency Provider Emergency Medicine; PCP Internal Medicine; Visit Provider Student in an Organized Health Care Education/Training Program
DX: R07.9 Chest pain, unspecified (principal); F41.9 Anxiety disorder, unspecified; F10.10 Alcohol abuse, uncomplicated; Y90.9 Presence of alcohol in blood, level not specified; E11.9 Type 2 diabetes mellitus without complications; I10 Essential (primary) hypertension; I44.0 Atrioventricular block, first degree; E66.01 Morbid (severe) obesity due to excess calories; Z68.38 Body mass index [BMI] 38.0-38.9, adult; F17.200 Nicotine dependence, unspecified, uncomplicated; Z79.84 Long term (current) use of oral hypoglycemic drugs; Z79.4 Long term (current) use of insulin; Z79.899 Other long term (current) drug therapy
CPT/HCPCS: 36415; 36416; 71045; 76705; 80048; 80053; 80061; 80306; 80307; 82607; 82962; 83036; 83690; 83735; 83880; 84443; 84484; 85025; 85378; 85610; 86140; 93005; 93306; 96372; 96374; 96375; 96376; 99285; G0378; J1650; J1815; J2060; J2270; J2405; J3411